=== PATIENT | female | born 1995 | race Caucasian/White ===

== ENCOUNTER 2022-02-06 23:14 | Emergency (ER) | payer SELFPAY ==
[~2022-02-06] VITALS: Ht 165.1 cm; Wt 136.4 kg
[~2022-02-06 23:14] MED LIST: CEPHALEXIN500 M1 PO; DEPAKOTE500 MG PO; DESYREL DIVIDO150 M1 PO; IMITREX50 MG PO; KLONOPIN 0.5MG0.5 MG PO; KLONOPIN 1MG1 MG PO; PAXIL40 MG PO; PYRIDIUM200 M1 PO; REGLAN 10MG10 MG/TAB PO; REMERON30 MG PO; RESTORIL 1515 MG/CAP PO; RESTORIL30 MG; SEROQUEL 200MG200 MG PO; SEROQUEL400 MG PO; ULTRAM 50MG TAB50 MG PO; ZOFRAN8 MG PO; ZYPREXA2.5 MG PO
[2022-02-06 23:43] VITALS: TEMP 98
[2022-02-07 04:14] VITALS: BP 188/156; PULSE 87
== END 2022-02-07 04:14 | disposition home or self-care (01) ==
LOC: COL.ER 23:14
DX: F41.9 Anxiety disorder, unspecified (principal)

== ENCOUNTER 2022-11-20 04:30 | Emergency (ER) | payer SELFPAY ==
[~2022-11-20] VITALS: Ht 165.1 cm; Wt 131.8 kg
[2022-11-20 04:36] VITALS: BP 166/102; TEMP 98
[2022-11-20] MEDS ORDERED: ROXICODONE 55 MG/TAB PO ×5 (05:17→10:39)
[2022-11-20 05:36] VITALS: PULSE 71
[2022-11-20] MEDS ORDERED: CRUTCHES MC ×6 (06:28→10:39)
== END 2022-11-20 05:36 | disposition other institution (70) ==
LOC: COL.ER 04:30
DX: S99.912A Unspecified injury of left ankle, initial encounter (principal); W10.9XXA Fall (on) (from) unspecified stairs and steps, initial encounter; X50.1XXA Overexertion from prolonged static or awkward postures, initial encounter